=== PATIENT | male | born 1975 | race Caucasian/White ===

== ENCOUNTER 2016-08-05 03:18 | Emergency (ER) | payer OTHER ==
[2016-08-05] MEDS ORDERED: CATAPRES PO ONE (03:52)
[2016-08-05 04:56] LABS: Basophils % (Auto) 0.4 % (0.0-1.8); Eosinophils % (Auto) 0.2 % (0.0-4.3); Hematocrit 23.7 % (35.5-45.6); Hemoglobin 7.6 gm/dl (11.8-15.2); Mean Corpuscular HGB Conc 32 % (32-34); Mean Corpuscular Hemoglobin 28 pg (28-32); Mean Corpuscular Volume 86 fl (84-94); Platelet Count 155 K/mm3 (140-440); Red Blood Count 2.74 M/mm3 (3.65-5.03); Red Cell Distribution Width 13.3 % (13.2-15.2); White Blood Count 4.3 K/mm3 (4.5-11.0)
[2016-08-05 05:23] LABS: Calcium 7.9 mg/dL (8.4-10.2); Chloride 103.4 mmol/L (98-107); Potassium 3.5 mmol/L (3.6-5.0)
[2016-08-05 09:32] LABS: Bacteria,Urine 1+ /HPF (Negative); Bilirubin,Urine NEG (Negative); Blood,Urine SM (Negative); Ketones,Urine NEG (Negative); Leukocyte Esterase,Urine TR (Negative); Mucus,Urine FEW /HPF; Nitrite,Urine NEG (Negative); Urobilinogen,Urine < 2.0 mg/dL (<2.0)
[2016-08-05 09:35] LABS: Protein,Urine >500 mg/dL (Negative)
--- NOTE | 2016-08-05 09:52 | Emergency Department Report ---
ED General Adult HPI - General Chief complaint: High BP Stated complaint: NASAL CONGESTION/COUGH Time Seen by Provider: 08/05/16 09:32 Source: patient Mode of arrival: Ambulatory Limitations: No Limitations - History of Present Illness Initial comments: Patient states he's been having problems with his allergies particularly while [place] [employer] [place] this [place]. He took Benadryl [id number]. He took Advil. He states he felt like he had a fever but he did not check his temperature. He states that he had 2 nosebleeds over the last 24-48 hours this has subsided. He also states he had significant drainage from his nose prior to the nosebleeds that occurred after forceful nose blowing. Patient denies a history of prior transfusion. He states that he was anemic status post an abdominoplasty with a postoperative groin abscess. He did not receive a transfusion at that time. He was not hospitalized for the groin abscess. It was drained as an outpatient. Patient denies a prior prescription for hypertension. He also denies a history of renal insufficiency. He denies taking any decongestants. -: week(s) Severity scale (0 -10): 0 Consistency: intermittent, now resolved Improves with: none Worsens with: other (environmental exposure) Associated Symptoms: denies other symptoms Treatments Prior to Arrival: none - Related Data Previous Rx's Medication Instructions Recorded Last Taken Type Ferrous Gluconate [Fergon 325 MG 325 mg PO TID #20 tablet 08/05/16 Unknown Rx tab] Sulfamethoxazole/Trimethoprim 1 each PO BID #14 tablet 08/05/16 Unknown Rx [Bactrim DS TAB] amLODIPine [Norvasc] 5 mg PO DAILY #30 tab 08/05/16 Unknown Rx Allergies Allergy/AdvReac Type Severity Reaction Status Date / Time No Known Allergies Allergy Verified 08/05/16 03:39 ED Review of Systems ROS: Stated complaint: NASAL CONGESTION/COUGH Other details as noted in HPI Constitutional: denies: chills, fever Eyes: denies: eye pain, eye discharge, vision change ENT: as per HPI, throat pain, epistaxis, congestion. denies: ear pain Respiratory: denies: cough, shortness of breath, wheezing Cardiovascular: denies: chest pain, palpitations Endocrine: no symptoms reported Gastrointestinal: denies: abdominal pain, nausea, diarrhea Genitourinary: denies: urgency, dysuria Musculoskeletal: denies: back pain, joint swelling, arthralgia Skin: denies: rash, lesions Neurological: denies: headache, weakness, paresthesias Psychiatric: denies: anxiety, depression Hematological/Lymphatic: denies: easy bleeding, easy bruising ED Past Medical Hx - Past Medical History Previous Medical History?: No - Surgical History Past Surgical History?: Yes - Social History Smoking Status: Never Smoker Substance Use Type: Alcohol - Medications Home Medications: Home Medications Medication Instructions Recorded Confirmed Last Taken Type Ferrous Gluconate [Fergon 325 MG 325 mg PO TID #20 tablet 08/05/16 Unknown Rx tab] Sulfamethoxazole/Trimethoprim 1 each PO BID #14 tablet 08/05/16 Unknown Rx [Bactrim DS TAB] amLODIPine [Norvasc] 5 mg PO DAILY #30 tab 08/05/16 Unknown Rx ED Physical Exam - General Limitations: No Limitations General appearance: alert, in no apparent distress - Head Head exam: Present: atraumatic, normocephalic - Eye Eye exam: Present: normal appearance, PERRL, EOMI, other (some conjunctival pallor noted ). Absent: scleral icterus - ENT ENT exam: Present: normal exam, mucous membranes moist - Neck Neck exam: Present: normal inspection. Absent: tenderness, meningismus - Respiratory Respiratory exam: Present: normal lung sounds bilaterally. Absent: respiratory distress - Cardiovascular Cardiovascular Exam: Present: normal rhythm, tachycardia. Absent: systolic murmur, diastolic murmur, rubs, gallop - GI/Abdominal GI/Abdominal exam: Present: soft, normal bowel sounds. Absent: distended, tenderness, guarding, rebound, rigid - Rectal Rectal exam: Present: deferred - Extremities Exam Extremities exam: Present: other (nailbed pallor) - Back Exam Back exam: Present: normal inspection - Neurological Exam Neurological exam: Present: alert, oriented X3, CN II-XII intact. Absent: motor sensory deficit - Psychiatric Psychiatric exam: Present: normal affect, normal mood - Skin Skin exam: Present: warm, dry, intact, normal color. Absent: rash ED Course Vital Signs 08/05/16 08/05/16 08/05/16 03:39 03:57 06:35 Temperature 100.1 F H Pulse Rate 106 H 106 H 129 H Respiratory 18 20 Rate Blood Pressure 184/120 196/121 172/109 Blood Pressure [Left] O2 Sat by Pulse 100 100 Oximetry 08/05/16 08/05/16 08/05/16 08:27 08:47 08:48 Temperature 98.6 F Pulse Rate 90 90 Respiratory 16 16 Rate Blood Pressure 180/110 Blood Pressure 179/108 [Left] O2 Sat by Pulse 100 100 Oximetry - Reevaluation(s) Reevaluation #1: The patient has uncontrolled hypertension, renal insufficiency, resting tachycardia, epistaxis, anemia and possibly a sinus infection. I've explained to him this is too much to properly treat as an outpatient. Admission was recommended. The patient is mentally competent and has fused admission. He states he will come back to the hospital on Sunday. I've explained to him that I do not recommended this. We have gone over the many unanswered questions about his presentation such as the cause of his anemia, the cause and acuity of his renal insufficiency and the fact that he is tachycardic with a possible infection. He understands all this. He accepts the risks of signing out AMA. I am going to place him on an antihypertensive agent, supplemental iron, and an antibiotic. I'm going to give him outpatient referrals. He will however be signing out AMA cognizant of the risk and benefit of hospitalization. 08/05/16 09:59 ED Medical Decision Making - Lab Data Result diagrams: 08/05/16 04:28 08/05/16 04:28 Laboratory Results - last 24 hr 08/05/16 08/05/16 08/05/16 04:28 04:28 09:10 WBC 4.3 L RBC 2.74 L Hgb 7.6 L Hct 23.7 L MCV 86 MCH 28 MCHC 32 RDW 13.3 Plt Count 155 Lymph % (Auto) 35.1 H Brule % (Auto) 10.6 H Eos % (Auto) 0.2 Baso % (Auto) 0.4 Lymph # 1.5 Brule # 0.5 Eos # 0.0 Baso # 0.0 Seg Neutrophils % 53.7 Seg Neutrophils # 2.3 Sodium 139 Potassium 3.5 L Chloride 103.4 Carbon Dioxide 22 Anion Gap 17 BUN 18 Creatinine 2.0 H Estimated GFR 37 BUN/Creatinine Ratio 9.00 Glucose 111 H Calcium 7.9 L Urine Color Yellow Urine Turbidity Clear Urine pH 6.0 Ur Specific [place] 1.017 Urine Protein >500 Urine Glucose (UA) Neg Urine Ketones Neg Urine Blood Sm Urine Nitrite Neg Urine Bilirubin Neg Urine Urobilinogen < 2.0 Ur Leukocyte Esterase Tr Urine WBC (Auto) 6.0 Urine RBC (Auto) 5.0 U Epithel Cells (Auto) 4.0 Urine Bacteria (Auto) 1+ Urine Mucus Few Critical care attestation.: If time is entered above; I have spent that time in minutes in the direct care of this critically ill patient, excluding procedure time. ED Disposition Clinical Impression: Uncontrolled hypertension, Tachycardia, Renal insufficiency, Hypocalcemia Anemia Qualifiers: Anemia type: unspecified type Qualified Code(s): D64.9 - Anemia, unspecified Acute sinusitis Qualifiers: Sinusitis location: unspecified location Recurrence: non-recurrent Qualified Code(s): J01.90 - Acute sinusitis, unspecified Disposition: LEFT AGAINST MEDICAL ADVICE Is pt being admited?: No Does the pt Need Aspirin: No Condition: Stable Instructions: Hypertension (ED), Impaired Kidney Function (ED), Sinusitis (ED) , Anemia (ED) Additional Instructions: You have decided to sign out AGAINST MEDICAL ADVICE. There are a number of abnormalities that need to be addressed in the hospital to include her uncontrolled hypertension, your impaired renal function, your apparent sinus infection and fast heart rate. Your nosebleeds and anemia. I am going to give her some prescriptions but they don't supplant the apparent need for you to be admitted today. I do recommend that you seek medical care as soon as possible and follow-up. Rx as directed. See referrals. Prescriptions: amLODIPine [Norvasc] 5 mg PO DAILY #30 tab Ferrous Gluconate [Fergon 325 MG tab] 325 mg PO TID #20 tablet Sulfamethoxazole/Trimethoprim [Bactrim DS TAB] 1 each PO BID #14 tablet Referrals: JUAN WILL MD [Primary Care Provider] - 3-5 Days MARNIE JOSE MD [Staff Physician] - [facility] [Provider Group] - 3-5 Days Forms: AMA Form Time of Disposition: 10:03
[2016-08-05 10:08] VITALS: BP 161/93
== END 2016-08-05 10:20 | disposition left against medical advice (07) ==
LOC: ED 03:18
DX: I10 Essential (primary) hypertension (principal); N28.9 Disorder of kidney and ureter, unspecified; D64.9 Anemia, unspecified; J01.90 Acute sinusitis, unspecified; R00.0 Tachycardia, unspecified; E83.51 Hypocalcemia
CPT/HCPCS: 36415; 80048; 81001; 85025; 99283